=== PATIENT | male | born 1945 | race Caucasian/White ===

== ENCOUNTER 2023-04-07 12:05 | Emergency (ER) | payer MEDICARE, OTHER ==
[~2023-04-07] VITALS: Ht 180.3 cm; Wt 91.0 kg
--- NOTE | 2023-04-07 12:17 | ED Syncope ---
General Stated Complaint: SYNCOPAL EPISODE Source of Information: Patient, EMS Exam Limitations: No Limitations History of Present Illness Date Seen by Provider: Apr 07, 2023 Time Seen by Provider: 12:06 Initial Comments 77-year-old male presents the emergency department today after syncopal episode. He was at a [employer] and passed out from a standing position. He got dizzy prior losing consciousness. He denies any pain or injury from the incident. He states he does have a longstanding history of syncopal episodes, passing out about once a week per his report. No obvious medical causes been identified for his syncopal episodes to date. He states he feels back to normal. His called EMS because she was concerned he may have low blood sugar. His blood sugar during transit was 283 All other systems reviewed and negative except documented per HPI. Voice recognition software was used to help create this chart Allergies and Home Medications Allergies Coded Allergies: fentanyl (Verified Adverse Reaction, Unknown, MEMORY LOSS, 04/07/23) Patient Home Medication List Home Medication List Reviewed: Yes Review of Systems Constitutional: see HPI Past [id number] Hx Patient Social History Tobacco Use?: No Use of E-Cig and/or Vaping dev: No Substance use?: No Alcohol Use?: No Physical Exam Vital Signs Vital Signs - First Documented 04/07/23 12:05 Temp 35.4 Pulse 77 Resp 16 B/P (MAP) 96/66 (76) Pulse Ox 96 O2 Delivery Room Air Capillary Refill : Height, Weight, BMI Height: '" Weight: lbs. oz. kg; BMI Method: General Appearance: No Apparent Distress, WD/WN HEENT: Normal ENT Inspection, Pharynx Normal Neck: Normal Inspection, Non Tender, Supple Cardiovascular: Regular Rate, Rhythm, No Murmur Respiratory: Chest Non Tender, Lungs Clear, Normal Breath Sounds Gastrointestinal: Normal Bowel Sounds, Non Tender, Soft Back: Normal Inspection Extremities: Normal Capillary Refill, Normal Range of Motion, No Calf Tenderness, Other (Small bruise to his left thumb at the base. 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 Norm as Tested Cranial Nerves: Normal Hearing, Normal Speech, PERRL Coordination/Gait: Normal Finger to Nose, Normal Gait Motor/Sensory: No Motor Deficit, No Sensory Deficit Skin: Normal Color, Warm/Dry Progress/Results/Core Measures Results/Orders Lab Results Laboratory Tests Test 04/07/23 12:10 Range/Units White Blood Count 7.7 4.3-11.0 10^3/uL Red Blood Count 3.85 L 4.30-5.52 10^6/uL Hemoglobin 12.0 L 13.3-17.7 g/dL Hematocrit 36 L 40-54 % Mean Corpuscular Volume 94 80-99 fL Mean Corpuscular Hemoglobin 31 25-34 pg Mean Corpuscular Hemoglobin Concent 33 32-36 g/dL Red Cell Distribution Width 12.4 10.0-14.5 % Platelet Count 182 130-400 10^3/uL Mean Platelet Volume 10.2 9.0-12.2 fL Immature Granulocyte % (Auto) 0 % Neutrophils (%) (Auto) 74 42-75 % Lymphocytes (%) (Auto) 15 12-44 % Monocytes (%) (Auto) 7 0-12 % Eosinophils (%) (Auto) 3 0-10 % Basophils (%) (Auto) 0 0-10 % Neutrophils # (Auto) 5.7 1.8-7.8 10^3/uL Lymphocytes # (Auto) 1.1 1.0-4.0 10^3/uL Monocytes # (Auto) 0.5 0.0-1.0 10^3/uL Eosinophils # (Auto) 0.3 0.0-0.3 10^3/uL Basophils # (Auto) 0.0 0.0-0.1 10^3/uL Immature Granulocyte # (Auto) 0.0 0.0-0.1 10^3/uL Sodium Level 138 135-145 MMOL/L Potassium Level 3.4 L 3.6-5.0 MMOL/L Chloride Level 105 98-107 MMOL/L Carbon Dioxide Level 25 21-32 MMOL/L Anion Gap 8 5-14 MMOL/L Blood Urea Nitrogen 38 H 7-18 MG/DL Creatinine 2.46 H 0.60-1.30 MG/DL Estimat Glomerular Filtration Rate 26 BUN/Creatinine Ratio 15 Glucose Level 191 H 70-105 MG/DL Calcium Level 8.7 8.5-10.1 MG/DL My Orders Orders - BRIJESH OLVERA DO Basic Metabolic Panel (04/07/23 12:14) Ekg Tracing (04/07/23 12:14) Cbc With Automated Diff (04/07/23 12:14) Vital Signs/I&O 04/07/23 12:05 Temp 35.4 Pulse 77 Resp 16 B/P (MAP) 96/66 (76) Pulse Ox 96 O2 Delivery Room Air Comment Sinus rhythm with a rate of 71 bpm. Normal intervals. Left axis deviation. T wave inversion in aVL. No ST or T wave abnormalities otherwise. No ectopy. No STEMI. Departure Communication (Admissions) Patient is hemodynamically stable, neurovascular motor and sensory intact. He has chronic kidney disease and his creatinine is elevated. Unclear what his baseline is but he has no acute issues related to his kidneys. His electrolytes are unremarkable outside of some mild hypokalemia. Given his chronic kidney disease I will not replete this at this time but deferring to nephrology. I do not think this has anything to do with his syncopal episode today. His EKG is nonischemic with no evidence for dysrhythmia. Labs are otherwise unremarkable. He is discharged in stable condition. Impression Primary Impression: Syncope Qualified Codes: R55 - Syncope and collapse Disposition: HOME, SELF-CARE Condition: Stable Departure-Patient Inst. Referrals: NO,LOCAL PHYSICIAN (PCP/Family) Primary Care Physician Patient Instructions: Syncope (Fainting) (DC) Add. Discharge Instructions: No emergent medical causes are identified for your passing out today. Your electrolytes show some mild low potassium however this is certainly not the cause of your issues today. Your labs otherwise look good. Your exam is reassuring as are your vital signs. Return to the emergency department for any severe concerns. Follow-up with your primary doctor for any nonemergent needs. BRIJESH OLVERA DO Apr 07, 2023 12:17
[2023-04-07 12:21] LABS: BASOPHILS % (AUTO) 0 % (0-10); EOSINOPHILS # (AUTO) 0.3 10^3/uL (0.0-0.3); EOSINOPHILS % (AUTO) 3 % (0-10); HEMATOCRIT 36 % (40-54); LYMPHOCYTES # (AUTO) 1.1 10^3/uL (1.0-4.0); LYMPHOCYTES % (AUTO) 15 % (12-44); MEAN CORPUSCULAR HEMOGLOBIN 31 pg (25-34); MEAN CORPUSCULAR HGB CONC 33 g/dL (32-36); MEAN CORPUSCULAR VOLUME 94 fL (80-99); MEAN PLATELET VOLUME 10.2 fL (9.0-12.2); MONOCYTES # (AUTO) 0.5 10^3/uL (0.0-1.0); MONOCYTES % (AUTO) 7 % (0-12); NEUTROPHILS # (AUTO) 5.7 10^3/uL (1.8-7.8); NEUTROPHILS % (AUTO) 74 % (42-75); PLATELET COUNT 182 10^3/uL (130-400); WHITE BLOOD COUNT 7.7 10^3/uL (4.3-11.0)
[2023-04-07 12:35] LABS: CALCIUM 8.7 MG/DL (8.5-10.1); CREATININE SERUM 2.46 MG/DL (0.60-1.30); POTASSIUM 3.4 MMOL/L (3.6-5.0)
[2023-04-07 13:18] VITALS: BP 102/61
== END 2023-04-07 13:19 | disposition home or self-care (01) ==
LOC: ER 12:10
DX: S60.012A Contusion of left thumb without damage to nail, initial encounter (principal); R55 Syncope and collapse; E87.6 Hypokalemia; X58.XXXA Exposure to other specified factors, initial encounter
CPT/HCPCS: 36415; 80048; 85025; 93005